=== PATIENT | male | born 2000 | race Two or more races ===

== ENCOUNTER 2023-03-07 22:53 | Emergency (ER) | payer MEDICAID, OTHER ==
[~2023-03-07] VITALS: Ht 180.3 cm; Wt 92.0 kg
[2023-03-08] MEDS ORDERED: CEPH500C PO (00:23)
[2023-03-08] MEDS ORDERED: MUPI2OIN2 EX (00:23)
[2023-03-08] MEDS ORDERED: IBUP1TAB5 PO (00:23)
[2023-03-08] MEDS ORDERED: IBUPROFEN 600 MG TAB PO ONE (00:30)
[2023-03-08] MEDS ORDERED: TETANUS-DIPTH-ACEL PERTUSSIS 0.5ML SYR Tdap IM ONE (00:30)
[2023-03-08] MEDS ORDERED: SILVER SULFADIAZINE 1 % TOPICAL CREAM 50GM TOP ONE (00:30)
[2023-03-08] MEDS ORDERED: CEPHALEXIN 250 MG/5ml ORAL Susp 200ML BTL PO ONE (00:30)
[2023-03-08] MEDS ORDERED: CEPHALEXIN 250 MG CAP PO ONE (01:15)
[2023-03-08 02:02] VITALS: BP 121/77; PULSE 72; RESP 18; TEMP 98.3; O2SAT 95
== END 2023-03-08 02:08 | disposition home or self-care (01) ==
LOC: ER 22:53
DX: T23.221A Burn of second degree of single right finger (nail) except thumb, initial encounter (principal); X10.1XXA Contact with hot food, initial encounter; Y93.G3 Activity, cooking and baking; Y92.89 Other specified places as the place of occurrence of the external cause; Y99.8 Other external cause status
CPT/HCPCS: 16000; 90715